=== PATIENT | female | born 2000 | race Two or more races ===

== ENCOUNTER 2025-04-23 14:03 | Emergency (ER) | payer MEDICAID, SELFPAY ==
[2025-04-23 14:04] VITALS: BMI 19.0
[2025-04-23 14:20] VITALS: BP 101/64; PULSE 71; RESP 18; TEMP 36.7; O2SAT 98
--- NOTE | 2025-04-23 14:34 | XR_ITS ---
Examination: CT abdomen with intravenous contrast CT pelvis with intravenous contrast 2-D coronal reconstructions 2-D sagittal reconstructions Date and time of exam:April 23, 2025 1921 hours INDICATIONS: Right lower barium pain and back pain onset today. CTDI: vol (mGy) 4.74. DLP: (mGycm) 200 Technique: Multiple axial sections of the abdomen and pelvis have been obtained. 64 slice high-resolution scanner used. 3 mm axial sections have been obtained, post intravenous injection of 50 cc Isovue 370 2-D sagittal, coronal reconstructions obtained. Low dose protocols were performed. One or more of the following dose reduction techniques were used; automated exposure control, adjustment of the mA and/or KV according to patient size, use of iterative reconstruction technique. Findings: No focal liver or splenic lesions Contracted gallbladder. No pancreatic mass Aorta normal size 1 mm mid left renal calculus No hydronephrosis or ureteral calculi Partial visualization normal appendix No bowel obstruction No diverticulitis Anteverted uterus Urinary bladder intact The osseous structures are intact IMPRESSION: 1 mm nonobstructing left renal calculus No hydronephrosis or ureteral calculi Normal appendix No bowel obstruction diverticulitis or free air
--- NOTE | 2025-04-23 14:37 | EDNOTE_ITS ---
ED Abdominal Pain RME/HPI General Chief Complaint: Abdominal Pain Stated complaint: GEN ABD PAIN, DIZZY, VOMITING Time seen by provider: 04/23/25 14:12 Arrival date/time: 04/23/25 14:03 Limitations: no limitations RME / HPI RME / HPI narrative: DR. RAMACHANDRAN MAIN ED EVALUATION: 25 year old female presents to the Emergency Department with complaint of sharp upper abdominal pain that began today and is radiating to the mid back area. She reports nausea and one episode of vomiting. Denies having eaten anything unusual. Last menstrual period was last month. Medical history is notable for SVT and section 2 years ago. No known allergies. Denies any recent illness or trauma. Related Data Home Medications ?Medication ?Instructions ?Recorded ?Confirmed vitamin-ferrous fumarate 1 tab PO QDAY 04/09/23 28 mg iron-folic acid 800 mcg tablet ( Vitamins with Minerals) Previous Rx's ?Medication ?Instructions ?Recorded metoprolol tartrate 25 mg tablet 25 mg PO QDAY #30 tab s 07/19/22 metoclopramide HCl 10 mg tablet 10 mg PO Q6H PRN nause a and 04/23/25 (Reglan) vomiting #14 tabs pantoprazole 40 mg tablet,delayed 40 mg PO QDAY #20 ta bs 04/23/25 release (Protonix) Allergies Allergy/AdvReac Type Severity Reaction Status Date / Time No Known Allergies Allergy Verified 04/23/25 14:06 Review of Systems Review of Systems Systems Reviewed: All systems reviewed, normal except as documented Past Medical History Past Medical History CARDIAC: Positive Cardiac Disorders (SVT) HEMATOLOGIC: Positive Anemia (IN CHILDHOOD NOT CURRENTLY) PSYCHO/SOCIAL: Positive Anxiety Social History SMOKING STATUS: Never smoker SUBSTANCE USE: does not use ALCOHOL: Never ED Exam General Limitations: Present no limitations General appearance: Present alert and in no apparent distress Head Head exam: Present atraumatic, normocephalic and normal inspection Eye Eye exam: Present normal appearance, PERRL and EOMI ENT ENT exam: Present normal exam, normal oropharynx and mucous membranes moist Neck Neck exam: Present normal inspection, full ROM and trachea midline Chest Chest inspection: Present normal inspection and symmetric chest wall rise Respiratory Respiratory exam: Present normal lung sounds bilaterally Cardiovascular Cardiovascular exam: Present regular rate, normal rhythm and normal heart sounds Abdominal Exam Abdominal exam: Present tenderness (1-2+ tenderness in the bilateral upper quadrants; 1+ tenderness in the bilateral lower quadrants) and normal bowel sounds; Absent mass or pulsatile mass Extremities Exam Extremities exam: Present normal inspection and full ROM Back Exam Back exam: Present normal inspection and full ROM Neurological Exam Neurological exam: Present alert, oriented X3 and CN II-XII intact Psychiatric Psychiatric exam: Present normal affect and normal mood Skin Skin exam: Present warm, dry, intact and normal color Course Quality Measures none Orders Category Date Time Status CT Screening NOW Care 04/23/25 14:35 Completed Manager Psychiatry STAT Care 04/23/25 14:34 Completed Continuous Pulse Oximetry STAT Care 04/23/25 14:34 Completed Insert IV STAT Care 04/23/25 14:34 Completed NPO STAT Care 04/23/25 14:[address] abdomen pelvis w con Stat Exams 04/23/25 14:34 Completed CBC Stat Lab 04/23/25 14:50 Completed Comprehensive Metabolic Panel Stat Lab 04/23/25 14:50 Completed HCG Qualitative,Urine Stat Lab 04/23/25 16:43 Completed Lipase Stat Lab 04/23/25 14:50 Completed Magnesium Stat Lab 04/23/25 14:50 Completed Prothrombin Time with INR Stat Lab 04/23/25 14:50 Completed Urinalysis Stat Lab 04/23/25 16:43 Completed Morphine Inj Med 04/23/25 14:34 Discontinued 4 mg IVP X1 ONE Ondansetron Inj [Zofran Inj] Med 04/23/25 14:35 Discontinued 4 mg IVP X1 ONE Sodium Chloride 0.9% 1000 ml [Ns] 1,000 ml Med 04/23/25 14:34 Discontinued IV 999 mls/hr mg Hyd/Al Hyd/Haydee Susp [Maalox Susp] Med 04/23/25 17:49 Discontinued 30 ml PO X1 ONE Vital Signs Vital signs: Vital Signs Temperature 98.1 F 04/23/25 14:20 Pulse Rate 71 04/23/25 14:20 Respiratory Rate 18 04/23/25 14:20 Blood Pressure 101/64 04/23/25 14:20 Pulse Oximetry (%) 98 04/23/25 14:20 Oxygen Delivery Method Room Air 04/23/25 14:20 Abdominal Pain MDM MDM Narrative MDM Narrative:: I, Edilia Draper am scribing for and in the presence of Dr. Ramachandran. Patient data External records reviewed:: [facility] previous records Clinical information provided by:: patient Social determinants that could affect healthcare access:: none Patient has the following chronic illnesses:: Medical history is notable for SVT and section 2 years ago. No known allergies. How is presenting disease/condition affected by chronic disease/condition?: uneffected by Evaluation data The following diagnostics were reviewed and interpreted by me:: lab results and radiology exam(s) Lab and/or radiology exams considered but not ordered:: none Interpretation Summary: pending Medications / Prescriptions Medications or Prescriptions considered but not ordered:: none Medication administrations:: Medication Administration History Discontinued Medications Al Hydrox/Mg Hydrox/Simethicone (Mg Hyd/Al Hyd/Haydee (Maalox Reg) Susp 30 Ml Udc) 30 ml PO X1 ONE Stop: 04/23/25 17:50 Last Admin: 04/23/25 18:34 Dose: 30 ml Documented By: MONI Sodium Chloride (Ns) 1,000 mls @ 999 mls/hr IV .Q1H1M ONE Stop: 04/23/25 15:34 Last Infusion: 04/23/25 20:11 Dose: Infused Documented By: Admin: 04/23/25 19:05 Dose: 999 mls/hr Documented By: JOBY Morphine Sulfate (Morphine Sulf Inj 10 Mg/Ml Vial) 4 mg IVP X1 ONE Stop: 04/23/25 16:34 Last Admin: 04/23/25 18:49 Dose: 4 mg Documented By: MONI Ondansetron HCl (Ondansetron Inj 2 Mg/Ml Inj 2 Ml) 4 mg IVP X1 ONE Stop: 04/23/25 14:36 Last Admin: 04/23/25 18:49 Dose: 4 mg Documented By: MONI see above Consultations Consultation(s) initiated? (list below): No Diagnosis Differential diagnosis abdominal pain: abdominal pain, calculus of kidney, co nstipation, diverticulitis and pancreatitis Most likely diagnosis given after review of the tests above:: No official diagnoses at this time, still pending diagnostic tests. Patient signout to the yard truck driver provider. Admission Indicated Admission indicated?: not indicated Explain why admission is indicated or not indicated:: No final disposition plan at this time, still pending diagnostic tests. Patient signout to the yard truck driver provider. Admission Request Was there a request for admission?: No Disposition Plan Disposition Plan: other (specify) (Patient signed out to Lucila Elaine, pending abdomen/pelvis CT and final disposition.) Discharge Plan Plan Patient Disposition: HOME (Self Care) Discharge Disposition comment: Stable Prescriptions/Referrals Prescriptions/Med Rec: New pantoprazole [Protonix] 40 mg tablet,delayed release (DR/EC) 40 mg PO QDAY Qty: 20 0RF metoclopramide HCl [Reglan] 10 mg tablet 10 mg PO Q6H PRN (Reason: nausea and vomiting) Qty: 14 0RF No Action metoprolol tartrate 25 mg tablet 25 mg PO QDAY Qty: 30 0RF Patient Comments: Patient states she only takes this when necessary. Pt states the last time she took it about a month ago. vit-iron fum-folic ac [ Vitamin with Minerals] 28 mg iron- 800 mcg Tablet 1 tab PO QDAY Referrals: Breanna Orellana FNP [Primary Care Provider] - In 1 week Problem List Clinical Impression: Abdominal pain, Gastritis Patient/Caregiver Discharge Instructions Discharge Activity: activity as tolerated Education Materials: Abdominal Pain, ED Gastritis (Adult) Additional Instructions: Thank you for the opportunity for serving you today. You are stable for discharged . You are advised to: Follow-up with your PCP in 1 to 2 days Return to ED for worsening of symptoms Increase oral fluids Take medication as prescribed Print Language: Georgian Stand Alone Forms: Mildred Award Info., Patient Portal Info Letter CARLO/MARTINA Supervising Physician CARLO/MARTINA Supervising Physician: MD Leida
[2025-04-23 15:10] LABS: Basophils # (Auto) 0.0 Thou/mm3 (0.0-0.2); Basophils % (Auto) 0 % (0-2.5); Eosinophils # (Auto) 0.1 Thou/mm3 (0.0-0.5); Eosinophils % (Auto) 1 % (0-10); Hematocrit 34.5 % (36.0-46.0); Hemoglobin 11.7 g/dL (12.0-16.0); Immature Granulocytes Auto 0.02 Thou/mm3 (0.00-0.00); Lymphocytes # (Auto) 1.4 Thou/mm3 (1.0-4.8); Lymphocytes % (Auto) 22 % (10-50); Mean Corpuscular HGB Conc 33.9 g/dl (31.0-37.0); Mean Corpuscular Hemoglobin 31.8 pg (25.0-35.0); Mean Corpuscular Volume 94 fL (80-100); Monocytes # (Auto) 0.3 Thou/mm3 (0.0-0.8); Monocytes % (Auto) 4 % (0-12); Neutrophils # (Auto) 4.5 Thou/mm3 (1.8-7.7); Neutrophils % (Auto) 72 % (37-80); Nucleated Red Blood Cell # 0.00 Thou/mm3 (0.00-0.00); Nucleated Red Blood Cell % 0 /100 WBC (0); Platelet Count 230 Thou/mm3 (140-440); RDW Standard Deviation 45.9 fL (36.4-46.3); Red Blood Count 3.68 Miln/mm3 (4.00-5.20); White Blood Count 6.3 Thou/mm3 (3.6-11.0)
[2025-04-23 15:17] LABS: INR 1.0 (0.9-1.3); Prothrombin Time 11.2 Seconds (9.0-12.2)
[2025-04-23 15:28] LABS: Alanine Aminotransferase 11 U/L (10-49); Albumin, Serum 4.5 gm/dL (3.5-5.0); Albumin/Globulin Ratio 2.0 (1.2-2.2); Alkaline Phosphatase 49 U/L (46-116); Anion Gap 10 (7-16); Aspartate Amino Transferase 15 U/L (0-34); BUN/Creatinine Ratio 17 Ratio (12-20); Bilirubin,Total 0.8 mg/dL (0.3-1.2); Blood Urea Nitrogen 12 mg/dL (9-23); Calcium 9.0 mg/dL (8.3-10.6); Calcium (Corrected) 9.0 mg/dL (8.5-10.1); Carbon Dioxide 25.5 mMol/L (20.0-31.0); Chloride 107 mMol/L (98-107); Creatinine (Component) 0.7 mg/dL (0.6-1.3); Estimated Creatinine Clearance 90.7 mL/min (>60); Globulin 2.3 gm/dL (2.3-3.5); Glucose 105 mg/dL (74-106); Lipase 28 U/L (12-53); Magnesium 1.6 mg/dL (1.6-2.6); Osmolality,Calculated 282 (275-295); Potassium 4.5 mMol/L (3.4-5.1); Sodium 142 mMol/L (136-145); Total Protein 6.8 gm/dL (5.7-8.2); eGFR > 60 See Note
[2025-04-23 16:55] LABS: Collection Type, Urine Clean Catch
[2025-04-23 17:00] LABS: HCG Qualitative,Urine Negative
[2025-04-23 17:05] LABS: Amorphous Crystals,Urine Present (Absent); Bilirubin,Urine Negative (Negative); Blood,Urine Negative (Negative); Clarity,Urine Clear (Clear/Hazy); Color,Urine Lt-Yellow (Lt Yel-Yel); Glucose, Urine Negative (Negative); Ketones,Urine Negative (Negative); Leukocyte Esterase,Urine Positive (Negative); Nitrite,Urine Negative (Negative); PH,Urine 7.5 (5.0-7.0); Protein,Urine Negative (Neg - Trace); RBC,Urine 3 /hpf (0-3); Specific Gravity,Urine 1.016 (1.001-1.035); Squamous Epithelial Cell,Urine 3 /hpf (0-5); Urobilinogen,Urine Negative mg/dL (0.0-1.0); WBC,Urine 1 /hpf (0-5)
--- NOTE | 2025-04-23 17:50 | PD.EDABDPN ---
ED Abdominal Pain RME/HPI General Chief Complaint: Abdominal Pain Stated complaint: GEN ABD PAIN, DIZZY, VOMITING Time seen by provider: 04/23/25 14:12 Arrival date/time: 04/23/25 14:03 Limitations: no limitations RME / HPI RME / HPI narrative: 25 year old female presents to the Emergency Department with complaint of sharp upper abdominal pain that began today and is radiating to the mid back area. She reports nausea and one episode of vomiting. Denies having eaten anything unusual. Last menstrual period was last month. Medical history is notable for SVT and section 2 years ago. No known allergies. Denies any recent illness or trauma. Denies any fever. Related Data Home Medications ?Medication ?Instructions ?Recorded ?Confirmed vitamin-ferrous fumarate 1 tab PO QDAY 03/21/23 04/09/23 28 mg iron-folic acid 800 mcg tablet ( Vitamins with Minerals) Previous Rx's ?Medication ?Instructions ?Recorded metoprolol tartrate 25 mg tablet 25 mg PO QDAY #30 tabs 07/19/22 metoclopramide HCl 10 mg tablet 10 mg PO Q6H PRN nausea and 04/23/25 (Reglan) vomiting #14 tabs pantoprazole 40 mg tablet,delayed 40 mg PO QDAY #20 tabs 04/23/25 release (Protonix) Allergies Allergy/AdvReac Type Severity Reaction Status Date / Time No Known Allergies Allergy Verified 04/23/25 14:06 Review of Systems Review of Systems Narrative Review of Systems: Review of system reviewed and within normal limits except mentioned in HPI ED Exam Narrative Physical exam: VITAL SIGNS: Reviewed. GENERAL APPEARANCE: Alert and interactive, follows commands, no acute distress, HEAD AND FACE: Non-traumatic. ENT: PERRL, pink conjunctivitis, eyelid no trauma, Mucous membrane moist. NECK: Supple, nontender, no nuchal rigidity. CHEST: No tenderness, no crepitus, no paradoxical movement, no retractions. LUNGS: Clear, well ventilated, symmetric, no rales, no wheezing, no ronchi, no stridor, good breath sounds bilaterally. HEART: Regular rate, regular rhythm, no murmur, no gallops. ABDOMEN: Soft, positive bowel sounds, nondistended, no guarding, epigastric tenderness, no rebound, no masses, RECTAL: Deferred. GENITAL: Deferred. NEUROLOGICAL: Gross motor function intact sensory function intact, Appropriate for age. MUSCULOSKELETAL: low back nontender, full range of motion. EXTREMITIES: Nontender, full range of motion. SKIN: Color pink, dry, no rash, no lacerations, no abrasions, no contusions. LYMPHATICS: Deferred. General Limitations: Present no limitations General appearance: Present alert and in no apparent distress Course Quality Measures none Orders Category Date Time Status CT Screening NOW Care 04/23/25 14:35 Active Set Off Press Operator STAT Care 04/23/25 14:34 Active Continuous Pulse Oximetry STAT Care 04/23/25 14:34 Completed Insert IV STAT Care 04/23/25 14:34 Active NPO STAT Care 04/23/25 14:[address] abdomen pelvis w con Stat Exams 04/23/25 14:34 Completed CBC Stat Lab 04/23/25 14:50 Completed Comprehensive Metabolic Panel Stat Lab 04/23/25 14:50 Completed HCG Qualitative,Urine Stat Lab 04/23/25 16:43 Completed Lipase Stat Lab 04/23/25 14:50 Completed Magnesium Stat Lab 04/23/25 14:50 Completed Prothrombin Time with INR Stat Lab 04/23/25 14:50 Completed Urinalysis Stat Lab 04/23/25 16:43 Completed Morphine Inj Med 04/23/25 14:34 Discontinued 4 mg IVP X1 ONE Ondansetron Inj [Zofran Inj] Med 04/23/25 14:35 Discontinued 4 mg IVP X1 ONE Sodium Chloride 0.9% 1000 ml [Ns] 1,000 ml Med 04/23/25 14:34 Discontinued IV 999 mls/hr mg Hyd/Al Hyd/Haydee Susp [Maalox Susp] Med 04/23/25 17:49 Discontinued 30 ml PO X1 ONE Vital Signs Vital signs: Vital Signs Temperature 98.1 F 04/23/25 14:20 Pulse Rate 71 04/23/25 14:20 Respiratory Rate 18 04/23/25 14:20 Blood Pressure 101/64 04/23/25 14:20 Pulse Oximetry (%) 98 04/23/25 14:20 Oxygen Delivery Method Room Air 04/23/25 14:20 Abdominal Pain MDM MDM Narrative MDM Narrative:: 25 year old female presents to the Emergency Department with complaint of sharp upper abdominal pain that began today and is radiating to the mid back area. She reports nausea and one episode of vomiting. Denies having eaten anything unusual. Last menstrual period was last month. Medical history is notable for SVT and section 2 years ago. No known allergies. Denies any recent illness or trauma. Denies any fever. Patient's workup today came back normal including CT scan of the abdomen pelvis. Results discussed with the patient. Prior to discharge patient told me that her abdominal pain is totally gone. Patient is probably having gastritis. Patient data External records reviewed:: None Clinical information provided by:: patient and family Social determinants that could affect healthcare access:: none Patient has the following chronic illnesses:: None How is presenting disease/condition affected by chronic disease/condition?: no chronic disease Evaluation data The following diagnostics were reviewed and interpreted by me:: lab results and radiology exam(s) Lab and/or radiology exams considered but not ordered:: None Interpretation Summary: See results in [facility] Medications / Prescriptions Medications or Prescriptions considered but not ordered:: none Medication administrations:: Medication Administration History Discontinued Medications Al Hydrox/Mg Hydrox/Simethicone (Mg Hyd/Al Hyd/Haydee (Maalox Reg) Susp 30 Ml Udc) 30 ml PO X1 ONE Stop: 04/23/25 17:50 Last Admin: 04/23/25 18:34 Dose: 30 ml Documented By: MONI Sodium Chloride (Ns) 1,000 mls @ 999 mls/hr IV .Q1H1M ONE Stop: 04/23/25 15:34 Last Infusion: 04/23/25 20:11 Dose: Infused Documented By: Admin: 04/23/25 19:05 Dose: 999 mls/hr Documented By: JOBY Morphine Sulfate (Morphine Sulf Inj 10 Mg/Ml Vial) 4 mg IVP X1 ONE Stop: 04/23/25 16:34 Last Admin: 04/23/25 18:49 Dose: 4 mg Documented By: MONI Ondansetron HCl (Ondansetron Inj 2 Mg/Ml Inj 2 Ml) 4 mg IVP X1 ONE Stop: 04/23/25 14:36 Last Admin: 04/23/25 18:49 Dose: 4 mg Documented By: MONI Zofran morphine IV fluids, and Maalox with significant improvement of symptoms Consultations Consultation(s) initiated? (list below): No Diagnosis Differential diagnosis abdominal pain: abdominal pain, gastroenteritis and pancreatitis Most likely diagnosis given after review of the tests above:: Gastritis Admission Indicated Admission indicated?: not indicated Admission Request Was there a request for admission?: No Disposition Plan Disposition Plan: Discharge Discharge Attestation Discharge Attestation: The patient and all family members were given an opportunity to ask questions and understood the discharge instructions. Discharge instructions specifically effects, indications for sooner follow up or return to the emergency department, and the expected course of current diagnosis. Patient condition: Stable Discharge Plan Plan Patient Disposition: HOME (Self Care) Discharge Disposition comment: Stable Prescriptions/Referrals Prescriptions/Med Rec: New pantoprazole [Protonix] 40 mg tablet,delayed release (DR/EC) 40 mg PO QDAY Qty: 20 0RF metoclopramide HCl [Reglan] 10 mg tablet 10 mg PO Q6H PRN (Reason: nausea and vomiting) Qty: 14 0RF No Action metoprolol tartrate 25 mg tablet 25 mg PO QDAY Qty: 30 0RF Patient Comments: Patient states she only takes this when necessary. Pt states the last time she took it about a month ago. vit-iron fum-folic ac [ Vitamin with Minerals] 28 mg iron- 800 mcg Tablet 1 tab PO QDAY Referrals: Breanna Orellana FNP [Primary Care Provider] - In 1 week Problem List Clinical Impression: Abdominal pain, Gastritis Patient/Caregiver Discharge Instructions Discharge Activity: activity as tolerated Education Materials: Abdominal Pain, ED Gastritis (Adult) Additional Instructions: Thank you for the opportunity for serving you today. You are stable for discharged . You are advised to: Follow-up with your PCP in 1 to 2 days Return to ED for worsening of symptoms Increase oral fluids Take medication as prescribed Print Language: Tajik Stand Alone Forms: Mildred Award Info., Patient Portal Info Letter BELA Supervising Physician BELA Supervising Physician: MD Leida
[2025-04-23] MEDS: MG HYD/AL HYD/SIME (Maalox Reg) SUSP 30 ML UDC PO (18:34)
[2025-04-23] MEDS: MORPHINE SULF INJ 10 MG/ML VIAL 4 MG IVP (18:49)
[2025-04-23] MEDS: ONDANSETRON INJ 2 MG/ML INJ 2 ML 4 MG IVP (18:49)
[2025-04-23 18:50] VITALS: BP 111/72; PULSE 66; PULSE 68; RESP 19; TEMP 37.2; O2SAT 99
[2025-04-23] MEDS: SODIUM CHLORIDE 0.9% 1000 ML 1,000 ML 999 ML IV (19:05)
[2025-04-23 21:31] VITALS: BP 104/60; PULSE 70; RESP 16; O2SAT 98
== END 2025-04-23 21:32 | disposition home or self-care (01) ==
PROVIDERS: Emergency Provider Family Medicine; PCP Nurse Practitioner Family
DX: K29.70 Gastritis, unspecified, without bleeding (principal)
CPT/HCPCS: 36415; 74177; 80053; 81001; 81025; 83690; 83735; 85025; 85610; 96361; 96374; 96375; 99284; A4649; J2270; J2405; J7030; Q9967; A9270